=== PATIENT | female | born 2000 ===

== ENCOUNTER 2020-04-03 11:43 | Emergency (ER) | payer BC ==
[~2020-04-03] VITALS: Ht 172.7 cm; Wt 77.3 kg
[2020-04-03 12:05] VITALS: BP 136/88; PULSE 120; TEMP 98.7
[2020-04-03] MEDS ORDERED: ALDACTONE50 MG PO (15:48)
[2020-04-03] MEDS ORDERED: MINOCYCLIN100 MG/CAP PO (15:48)
[2020-04-04] MEDS ORDERED: NORCO 325 MG-51 TAB PO (08:02)
== END 2020-04-03 12:20 | disposition left against medical advice (07) ==
LOC: COL.ER 11:43
DX: R10.31 Right lower quadrant pain (principal); R11.0 Nausea; Z53.21 Procedure and treatment not carried out due to patient leaving prior to being seen by health care provider

== ENCOUNTER 2020-04-03 16:41 | Observation (INO) | payer BC ==
[2020-04-03] VITALS (8 sets, daily range): BP systolic 130–153; BP diastolic 61–89; PULSE 95–109; TEMP 97.5–98.8
[~2020-04-03] VITALS: Ht 172.7 cm; Wt 81.8 kg
[~2020-04-03 16:41] MED LIST: ALDACTONE50 MG PO; MINOCYCLIN100 MG/CAP PO
--- NOTE | 2020-04-03 19:30 | NUR ---
1930 TO 222 PER BED FROM PACU AWAKE AND ALERT. IV FLUIDS INFUSING. SCD'S ON. PO FLUIDS OFFERED.
--- NOTE | 2020-04-03 20:00 | NUR ---
2000 UP TO BR WITH ASSIST AND VOIDED 200 CC. C/O INC PAIN. NORCO X1 PO GIVEN. PO FLUIDS TAKEN
--- NOTE | 2020-04-03 20:45 | NUR ---
2044 NORCO X1 PO GIVEN 2099 UP TO BR AND VODED 700 CC. IV FLUIDS INFUSED AND IV TO INT. PTS MOTHER HERE AT BEDSIDE. STATES IS FEELING BETTER.
[2020-04-04 02:00] VITALS: BP 117/71; PULSE 75; TEMP 98
[2020-04-04 05:00] VITALS: BP 126/70; PULSE 60; TEMP 97.8
[2020-04-04] MEDS ORDERED: NORCO 325 MG-51 TAB PO (08:02)
[2020-04-04 08:50] VITALS: BP 129/78; PULSE 100; TEMP 97.8
--- NOTE | 2020-04-04 09:22 | NUR ---
Initial visit; Patient and her mom thanked [facility] [employer] [facility] for stopping and offering encouragement and God's blessings. Patient doing well and has had a good experience during her stay at our hospital.
--- NOTE | 2020-04-04 10:41 | NUR ---
Patient given discharge instructions. IV DCd per order.
[2020-04-04 11:50] VITALS: BP 120/75; PULSE 89; TEMP 98.2
--- NOTE | 2020-04-04 13:05 | NUR ---
Patient escorted off unit by Zaid Conteh RN.
== END 2020-04-04 13:05 | disposition home or self-care (01) ==
LOC: SDCO 16:41 → OB 18:22
PROVIDERS: ADMIT Surgery
DX: K35.80 Unspecified acute appendicitis (principal); Z20.828 Contact with and (suspected) exposure to other viral communicable diseases
CPT/HCPCS: J0330; J1100; J1885; J2405; J2704; J3010; J7120